=== PATIENT | male | born 1965 | race Caucasian/White ===

== ENCOUNTER 2021-10-22 09:54 | Emergency (ER) | payer MEDICAID | END 2021-10-22 11:13 | disposition home or self-care (01) | LOC: JP.ED 09:54 | DX: S22.32XA Fracture of one rib, left side, initial encounter for closed fracture (principal); E11.9 Type 2 diabetes mellitus without complications; E66.9 Obesity, unspecified; Z68.37 Body mass index [BMI] 37.0-37.9, adult; Z79.899 Other long term (current) drug therapy; W19.XXXA Unspecified fall, initial encounter | CPT/HCPCS: 71250; 71250-26; 99285 ==

== ENCOUNTER → 2021-12-07 | Day surgery (SDC) | payer MEDICAID ==
[~2021-12-07] MED LIST: Lactated Ringers 1,000 ML IV SCH; Midazolam 1 MG/ML 2 ML SDV ONE; Propofol 200 MG/20 ML SDV ONE; fentaNYL 100 MCG/2 ML SDV ONE
== END ==
LOC: JP.SDS 06:00
PROVIDERS: ATTEND Family Medicine
DX: R19.7 Diarrhea, unspecified (principal); K31.7 Polyp of stomach and duodenum; K21.9 Gastro-esophageal reflux disease without esophagitis; K44.9 Diaphragmatic hernia without obstruction or gangrene; G47.33 Obstructive sleep apnea (adult) (pediatric); I10 Essential (primary) hypertension; E11.9 Type 2 diabetes mellitus without complications
CPT/HCPCS: 43239; 45378; 88305; J2250; J2704; J3010; J7120

== ENCOUNTER 2022-02-25 20:15 | Emergency (ER) | payer MEDICAID ==
[2022-02-25 21:35] LABS: CORONAVIRUS COVID-19 NAA NEGATIVE (NEGATIVE)
[2022-02-25 22:26] LABS: ESTIMATED GFR 59 mL/min (>60)
[2022-02-25] MEDS ORDERED: metFORMIN 500 MG Tab PO ONE (23:06)
== END 2022-02-25 23:20 | disposition home or self-care (01) ==
LOC: JP.ED 20:15
DX: B34.9 Viral infection, unspecified (principal); E86.0 Dehydration; R73.9 Hyperglycemia, unspecified; Z20.822 Contact with and (suspected) exposure to COVID-19
CPT/HCPCS: 0241U; 36415; 71046; 80053; 81001; 85025; 86140; 99283; A9270

== ENCOUNTER 2022-04-25 09:11 | Emergency (ER) | payer MEDICAID ==
[2022-04-25] MEDS ORDERED: Lidocaine 1% 5 ML VIAL INJECT ONE (10:20)
== END 2022-04-25 10:57 | disposition home or self-care (01) ==
LOC: JP.ED 09:11
DX: M25.562 Pain in left knee (principal); M25.462 Effusion, left knee; E11.9 Type 2 diabetes mellitus without complications; E66.9 Obesity, unspecified; Z79.84 Long term (current) use of oral hypoglycemic drugs; Z68.41 Body mass index [BMI] 40.0-44.9, adult
CPT/HCPCS: 26010; 73564-26-LT; 73564-LT; 87070; 87205; 89050; 89060; 99283

== ENCOUNTER 2022-05-01 18:36 | Emergency (ER) | payer MEDICAID ==
[2022-05-01] MEDS ORDERED: Ketorolac 30 MG/ML SDV IM ONE (19:01)
[2022-05-01] MEDS ORDERED: Lidocaine 1% 5 ML VIAL INJECT ONE (19:05)
[2022-05-01] MEDS ORDERED: Triamcinolone Acetonide 40 MG/ML 1 ML SDV INJECT STA (19:05)
== END 2022-05-01 19:50 | disposition home or self-care (01) ==
LOC: JP.ED 18:36
DX: M70.52 Other bursitis of knee, left knee (principal); E11.9 Type 2 diabetes mellitus without complications; E66.9 Obesity, unspecified; Z68.39 Body mass index [BMI] 39.0-39.9, adult; Z79.84 Long term (current) use of oral hypoglycemic drugs; Z79.899 Other long term (current) drug therapy
CPT/HCPCS: 20610; 36415; 85025; 86140; 96372; 99283; J1885; J3301